=== PATIENT | female | born 1950 | race Caucasian/White ===

== ENCOUNTER 2021-02-16 05:40 | Inpatient (IN) | payer OTHER, SELFPAY ==
[~2021-02-16] VITALS: Ht 172.7 cm; Wt 154.2 kg
[2021-02-16] MEDS ORDERED: CEFAZOLIN 1 GM IVPB PREMIX 50 ML IV ONE (07:00)
[2021-02-16] MEDS ORDERED: CEFAZOLIN SOD 1 GM in D5W 50 ML IV ONE (07:15)
[2021-02-16] MEDS ORDERED: PROPOFOL 200MG/ 20ML VIAL (DIPRIVAN) IV ONE (07:31)
[2021-02-16] MEDS ORDERED: ONDANSETRON HCL 4 MG/2 ML VIAL IVP ONE (07:31)
[2021-02-16] MEDS ORDERED: BUPIVACAINE /PF 0.25% 30 ML VIAL INJ ONE (07:31)
[2021-02-16] MEDS ORDERED: DEXAMETHASONE SOD PHOSPHATE 4 MG/ML VIAL IVP ONE (07:31)
[2021-02-16] MEDS ORDERED: fentaNYL CITRATE 250 MCG/5 ML AMP IV ONE (07:31)
[2021-02-16] MEDS ORDERED: LIDOCAINE 1% 10 MG/ML, 20 ML MDV INJ ONE (07:31)
[2021-02-16] MEDS ORDERED: NS 1000 ML IV.SOLN IV ONE (07:31)
[2021-02-16] MEDS ORDERED: DESFLURANE 15 MIN GAS INH ONE (07:31)
[2021-02-16] MEDS ORDERED: ROCURONIUM BROMIDE 10 MG/ML (ZEMURON) IV ONE (07:31)
[2021-02-16] MEDS ORDERED: SUGAMMADEX SODIUM 200 MG/2 ML VIAL IV ONE (07:31)
[2021-02-16] MEDS ORDERED: MIDAZOLAM HCL 5 MG/5 ML VIAL IVP ONE (07:31)
[2021-02-16] MEDS ORDERED: LR 1,000 ML IV.SOLN IV ONE (07:31)
[2021-02-16] MEDS ORDERED: HYDROmorphone 1 MG/ML INJ. CARTRIDGE IVP PRN (08:30)
[2021-02-16] MEDS ORDERED: LABETALOL 100 MG/ 20ML VIAL IVP PRN (08:30)
[2021-02-16] MEDS ORDERED: hydrALAZINE HCL 20 MG/ML VIAL IVP PRN (08:30)
[2021-02-16] MEDS ORDERED: ONDANSETRON HCL 4 MG/2 ML VIAL IVP PRN ×2 (08:30→09:45)
[2021-02-16] MEDS ORDERED: LR 1,000 ML IV SCH (08:30)
[2021-02-16] MEDS ORDERED: METOCLOPRAMIDE HCL 10 MG/2 ML VIAL IVP PRN (08:30)
[2021-02-16] MEDS ORDERED: MEPERIDINE HCL/PF 25 MG/ML DISP.SYRIN IVP PRN (08:30)
[2021-02-16] MEDS: D5/0.45 NS 1,000 ML IV SCH ×2 (09:45→12:12)
[2021-02-16] MEDS ORDERED: HYDROcodone/ACETAMIN 5-325 MG TAB (NORCO/ VICODIN) PO PRN ×2 (09:45)
[2021-02-16] MEDS: HYDROmorphone 1 MG/ML INJ. CARTRIDGE IVP PRN ×8 (10:03→21:05)
[2021-02-16] MEDS ORDERED: HYDROmorphone 1 MG/ML INJ. CARTRIDGE ONE ×2 (10:04→10:13)
[2021-02-16] MEDS ORDERED: ACETAMINOPHEN I.V. 1000 MG 100 ML IV ONE ×2 (10:30→10:43)
--- NOTE | 2021-02-16 10:59 | NUR ---
CONSULT MEDICAL MANAGEMENT POST OP DR [phone] S/W CM EXCHANGE
--- NOTE | 2021-02-16 11:00 | NUR ---
received patient Received SBAR from SARWAT Sun, patient in bed, respirations even, non labored, 4LO2 nasal canula, IVF's running as ordered, eyes closed, bed in low and locked position call light within reach, bed alarm on.
[2021-02-16 11:18] VITALS: BP_SYST 144
--- NOTE | 2021-02-16 12:23 | NUR ---
nurse note patient in bed, respirations even, non labored, bed in low and locked position call light within reach, bed alarm on
[2021-02-16] MEDS: CEFAZOLIN 1 GM IVPB PREMIX 50 ML IV SCH ×2 (13:20→20:59)
[2021-02-16 16:00] VITALS: BP_SYST 130
--- NOTE | 2021-02-16 16:00 | NUR ---
nurse note patient complaining of pain requesting pain medication
--- NOTE | 2021-02-16 16:40 | NUR ---
nurse note assisted patient to bedside commode, patient complained of nausea, small amount of green bile vomited, call light within reach
--- NOTE | 2021-02-16 17:14 | NUR ---
nurse note patient in bed, respirations even, non labored, bed in low and locked position call light within reach, patient able to use incentive spirometer as directed
--- NOTE | 2021-02-16 19:20 | NUR ---
closing note provided sbar to night RN, patient sitting on bedside commode, call light within reach, endorsed care to night RN
--- NOTE | 2021-02-16 19:20 | NUR ---
OPENING NOTES PATIENT RESTING, NO SIGNS OF RESPIRATORY DISTRESS NOTED. SAFETY, ASPIRATION, RESPIRATORY, AND FALL PRECAUTIONS IN PLACE. DISCUSSED PLAN OF CARE WITH PATIENT. CALL LIGHT WITHIN REACH, PATIENT DEMONSTRATES PROPER USAGE OF CALL LIGHT, BED ALARM ON, BED AT LOWEST POSITION, BED LOCKED. WILL CONTINUE TO MONITOR.
[2021-02-16 20:00] VITALS: BP_SYST 142
[2021-02-16] MEDS: FAMOTIDINE PF 20 MG/2 ML VIAL IVP SCH (20:59)
[2021-02-17] VITALS: BP_SYST 128
[2021-02-17] MEDS: HYDROmorphone 1 MG/ML INJ. CARTRIDGE IVP PRN ×2 (02:25→06:24)
[2021-02-17] MEDS: D5/0.45 NS 1,000 ML IV SCH ×3 (05:45→16:45)
[2021-02-17 06:21] LABS: BASOPHILS % (AUTO) 0.2 % (0.0-2.0); EOSINOPHILS % (AUTO) 0.1 % (0.0-4.0); HEMATOCRIT 32.3 % (36-48); HEMOGLOBIN 10.6 g/dL (12.0-16.0); LYMPHOCYTES # (AUTO) 0.6 K/uL (1.0-5.5); MEAN CORPUSCULAR HEMOGLOBIN 30 pg (27-31); MEAN CORPUSCULAR HGB CONC 33 % (32-36); MEAN CORPUSCULAR VOLUME 92 fL (79.0-98.0); MONOCYTES # (AUTO) 0.9 K/uL (0.0-1.0); MONOCYTES % (AUTO) 8.2 % (1.7-9.3); NEUTROPHILS # (AUTO) 9.1 K/uL (1.8-7.7); NEUTROPHILS % (AUTO) 85.5 % (40.0-70.0); PLATELET COUNT (AUTO) 153 K/uL (130-430); RED CELL DISTRIBUTION WIDTH 15.2 % (9.0-15.0); WHITE BLOOD COUNT (AUTO) 10.6 K/uL (4.8-10.8)
--- NOTE | 2021-02-17 06:38 | NUR ---
CLOSING NOTES PATIENT RESTING, NO SIGNS OF DISTRESS NOTED. SAFETY, ASPIRATION, RESPIRATORY, AND FALL PRECAUTIONS IN PLACE. CALL LIGHT WITHIN REACH, PATIENT DEMONSTRATED PROPER USAGE OF CALL LIGHT THROUGHOUT SHIFT, BED ALARM OFF PER PATIENT REQUEST, BED AT LOWEST POSITION, BED LOCKED. ALL NEEDS MET THROUGHOUT SHIFT. WILL ENDORSE CARE TO ONCOMING SHIFT.
[2021-02-17 06:58] LABS: ALBUMIN 2.7 g/dL (3.4-4.8); CALCIUM 7.8 mg/dL (8.4-11.0); CREATININE 0.68 mg/dL (0.55-1.30); POTASSIUM 4.4 mmol/L (3.5-5.1); TOTAL BILIRUBIN 0.7 mg/dL (0.0-1.0)
--- NOTE | 2021-02-17 07:11 | NUR ---
Nutrition Update Pavan Scale 15 noted. Pt admitted for [place] of gallbladder w/ chronic cholecyst w/o obstruction Diet: clear liquid BMI: 51.7 kg/m2 RD to follow per nutrition care standards.
[2021-02-17 08:27] VITALS: BP_SYST 104
[2021-02-17] MEDS: FAMOTIDINE PF 20 MG/2 ML VIAL IVP SCH ×2 (08:32→21:02)
[2021-02-17] MEDS: ENOXAPARIN SODIUM 30 MG/0.3 ML SYRINGE SUBCUT SCH (08:39)
--- NOTE | 2021-02-17 09:00 | NUR ---
Tolerate clear liquid diet after Zofran was given.
--- NOTE | 2021-02-17 10:15 | NUR ---
Mobility To bedside commode with assistance no dizziness , perineal care given
[2021-02-17 12:00] VITALS: BP_SYST 120
--- NOTE | 2021-02-17 12:25 | NUR ---
Ambulates to hallway with the physical therapy using walker tolerates well no dizziness.
[2021-02-17 16:00] VITALS: BP_SYST 118
[2021-02-17 20:00] VITALS: BP_SYST 140
--- NOTE | 2021-02-17 20:00 | NUR ---
Opening notes Pt AAOx4, VSS, no c/o pain. Abd bandaids x4 C/D/I. IVF infusing at ordered rate R. hand 20G clear and patent. Call light within reach. Bed low, locked, siderails up x3. Charly SCDs on. To monitor.
[2021-02-18 00:29] VITALS: BP_SYST 154
[2021-02-18] MEDS: D5/0.45 NS 1,000 ML IV SCH (03:12)
--- NOTE | 2021-02-18 06:30 | NUR ---
Closing notes Pt asleep, no s/s distress or discomfort noted. IVF infusing at ordered rate R. hand 20G clear and patent. Call light within reach. Bed low, locked, siderails up x3. Charly SCDs on. To endorse to AM nurse.
--- NOTE | 2021-02-18 07:40 | NUR ---
Opening note Patient is resting in bed A&O x4 no complaint of pain or discomfort. No signs or symptoms of respiratory distress. IV is patent no signs or symptoms of infiltration. Educated patient on plan of care, Patient verbalized understanding. Bed is in lowest position call light within reach. Will continue to monitor.
[2021-02-18 08:55] VITALS: BP_SYST 145
[2021-02-18] MEDS: FAMOTIDINE PF 20 MG/2 ML VIAL IVP SCH (09:35)
[2021-02-18] MEDS: ENOXAPARIN SODIUM 30 MG/0.3 ML SYRINGE SUBCUT SCH (09:38)
[2021-02-18 12:00] VITALS: BP_SYST 148
[2021-02-18 15:47] VITALS: BP_SYST 148
[2021-02-18 16:00] VITALS: BP_SYST 159
[2021-02-18] MEDS ORDERED: HYDR-3917 PO (16:03)
--- NOTE | 2021-02-18 17:35 | NUR ---
D/C Patient Patient given medication reconciliation form and D/C instructions. Exit Care provided. Patient verbalized understanding. MD discussed with patient the results and treatment provided. Ambulatory with steady gait for discharge to home. Patient in stable condition, ID band removed. IV catheter removed, intact and dressing applied, no active bleeding. Rx of [place] given. Patient educated on pain management. All belongings sent with patient.
== END 2021-02-18 17:35 | disposition home or self-care (01) | DRG 418 ==
LOC: SMU 05:40 → SDS 05:40 → SMU 10:20 → SDS 02-17 10:45 → SMU 02-17 10:47
PROVIDERS: ADMIT Colon & Rectal Surgery; ATTEND Colon & Rectal Surgery
PROC: BF101ZZ Fluoroscopy of Bile Ducts using Low Osmolar Contrast (ICD-10-PCS; 2021-02-16)
PROC: 0FN44ZZ Release Gallbladder, Percutaneous Endoscopic Approach (ICD-10-PCS; 2021-02-16)
PROC: 0FT44ZZ Resection of Gallbladder, Percutaneous Endoscopic Approach (ICD-10-PCS; principal; 2021-02-16 07:30)
DX: K80.10 Calculus of gallbladder with chronic cholecystitis without obstruction (principal); Z68.43 Body mass index [BMI] 50.0-59.9, adult; K82.8 Other specified diseases of gallbladder; E66.01 Morbid (severe) obesity due to excess calories
CPT/HCPCS: 36415; 74300; 80053; 85025; 87081; 88304; 97116-GP; 97530-GP; C1727; C1758; C9399; J0131; J0690; J1100; J1170; J1650; J2001; J2250; J2405; J2704; J3010; J3490; J7030; J7060; J7120; Q9967; U0003